=== PATIENT | male | born 1940 | race Caucasian/White ===

== ENCOUNTER 2022-12-18 02:58 | Emergency (ER) | payer MEDICARE, BC ==
[2022-12-18] MEDS ORDERED: Sodium Chloride 0.9% 10 ML Syringe FLUSH PRN (03:08)
[2022-12-18 03:30] LABS: ANION GAP 9.7 meq/L (7-15); CHLORIDE,CL 102 mmol/L (98-107); SODIUM,NA 139 mmol/L (136-145)
[2022-12-18 03:31] LABS: ESTIMATED GFR 76 mL/min (>=60)
== END 2022-12-18 04:03 ==
LOC: LL.ED 02:58
DX: R41.0 Disorientation, unspecified (principal); E78.00 Pure hypercholesterolemia, unspecified; I10 Essential (primary) hypertension; N40.0 Benign prostatic hyperplasia without lower urinary tract symptoms; Z87.891 Personal history of nicotine dependence
CPT/HCPCS: 36415; 70450; 71045; 80053; 82550; 83735; 83880; 84146; 84484; 85025; 85379; 85610; 93005; 93010; 99284; 99285

== ENCOUNTER 2023-03-04 09:23 | Emergency (ER) | payer MEDICARE, BC ==
[2023-03-04 09:46] LABS: BASOPHILS ABSOLUTE AUTO 0.02 K/uL (0.00-0.20); BASOPHILS PERCENT AUTO 0.3 % (0.0-2.0); EOSINOPHILS ABSOLUTE AUTO 0.24 K/uL (0.00-0.50); HEMATOCRIT 33.2 % (39.0-49.0); HEMOGLOBIN 10.5 g/dL (13.1-16.8); LYMPHOCYTES ABSOLUTE AUTO 1.49 K/uL (0.50-3.50); LYMPHOCYTES PERCENT AUTO 24.9 % (10.0-50.0); MEAN CORPUSCULAR HEMOGLOBIN 28.9 pg (28.2-33.3); MEAN CORPUSCULAR HGB CONC 31.6 g/dL (31.7-36.0); MEAN CORPUSCULAR VOLUME 91.5 fL (84.0-98.0); MONOCYTES ABSOLUTE AUTO 0.76 K/uL (0.00-1.00); MONOCYTES PERCENT AUTO 12.7 % (2.0-14.0); NEUTROPHILS ABSOLUTE AUTO 3.47 K/uL (1.40-7.00); NEUTROPHILS PERCENT AUTO 58.1 % (45.0-80.0); PLATELET COUNT,PLT 233 K/uL (150-350); RED BLOOD CELL COUNT 3.63 M/uL (4.33-5.41); RED CELL DISTRIBUTION WIDTH 14.7 % (11.2-14.1)
[2023-03-04 10:12] LABS: PROTHROMBIN TIME 20.3 SEC (9.6-11.3)
== END 2023-03-04 11:24 | disposition home or self-care (01) ==
LOC: LL.ED 09:23
DX: T83.038A Leakage of other urinary catheter, initial encounter (principal); I10 Essential (primary) hypertension; Z86.73 Personal history of transient ischemic attack (TIA), and cerebral infarction without residual deficits; Z91.048 Other nonmedicinal substance allergy status
CPT/HCPCS: 36415; 85025; 85610; 99283; 99284

== ENCOUNTER 2023-03-11 16:44 | Emergency (ER) | payer MEDICARE, BC ==
[2023-03-11 17:19] LABS: BASOPHILS ABSOLUTE AUTO 0.01 K/uL (0.00-0.20); BASOPHILS PERCENT AUTO 0.1 % (0.0-2.0); EOSINOPHILS ABSOLUTE AUTO 0.02 K/uL (0.00-0.50); EOSINOPHILS PERCENT AUTO 0.2 % (0.0-5.0); HEMATOCRIT 32.4 % (39.0-49.0); HEMOGLOBIN 10.5 g/dL (13.1-16.8); LYMPHOCYTES ABSOLUTE AUTO 1.37 K/uL (0.50-3.50); MEAN CORPUSCULAR HEMOGLOBIN 29.2 pg (28.2-33.3); MEAN CORPUSCULAR HGB CONC 32.4 g/dL (31.7-36.0); MONOCYTES ABSOLUTE AUTO 1.72 K/uL (0.00-1.00); MONOCYTES PERCENT AUTO 17.6 % (2.0-14.0); NEUTROPHILS ABSOLUTE AUTO 6.68 K/uL (1.40-7.00); NEUTROPHILS PERCENT AUTO 68.1 % (45.0-80.0); PLATELET COUNT,PLT 193 K/uL (150-350); RED CELL DISTRIBUTION WIDTH 14.8 % (11.2-14.1); WHITE BLOOD CELL COUNT,WBC 9.8 K/uL (4.0-10.2)
[2023-03-11 17:33] LABS: INR 2.8
[2023-03-11 17:37] LABS: ALANINE AMINOTRANSFERASE,ALT 30 U/L (12-78); ALBUMIN 3.5 g/dL (3.4-5.0); ALKALINE PHOSPHATASE 111 IU/L (46-116); ANION GAP 9.1 meq/L (7-15); ASPARTATE AMNIOTRANSFERASE,AST 26 U/L (15-37); BILIRUBIN TOTAL 0.9 mg/dL (0.2-1.0); BLOOD UREA NITROGEN,BUN 24 mg/dL (7-18); CALCIUM 8.9 mg/dL (8.5-10.1); CARBON DIOXIDE,CO2 25.9 mmol/L (21.0-32.0); CHLORIDE,CL 103 mmol/L (98-107); CREATININE 0.88 mg/dL (0.51-1.17); GLUCOSE RANDOM 127 mg/dL (70-99); POTASSIUM,K 3.7 mmol/L (3.5-5.1); PROTEIN TOTAL,TP 7.1 g/dL (6.4-8.2); SODIUM,NA 138 mmol/L (136-145)
[2023-03-11 17:39] LABS: ESTIMATED GFR 86 mL/min (>=60)
[2023-03-11 17:55] LABS: CORONAVIRUS COVID-19 NAA NEGATIVE (NEGATIVE); INFLUENZA A NAA NEGATIVE (NEGATIVE); INFLUENZA B NAA NEGATIVE (NEGATIVE); RESPIRATORY SYNCYTIAL VIR NAA NEGATIVE (NEGATIVE)
[2023-03-11] MEDS ORDERED: Sodium Chloride 0.9% 500 ML IV STA (18:03)
[2023-03-11 18:37] LABS: APPEARANCE,URINE SLIGHTLY CLOUDY; BILIRUBIN,URINE LARGE (NEGATIVE); COLOR,URINE RED; GLUCOSE,URINE 100 mg/dL (NEGATIVE); KETONES,URINE 40 mg/dL (NEGATIVE); LEUKOCYTE ESTERASE,URINE LARGE (NEGATIVE); NITRITE,URINE NEGATIVE (NEGATIVE); OCCULT BLOOD,URINE LARGE (NEGATIVE); PH,URINE 5.5 (5.0-9.0); PROTEIN,URINE >=300 mg/dL (NEGATIVE)
[2023-03-11 18:42] LABS: BACTERIA,URINE MODERATE /HPF (NONE TO FEW); EPITHELIAL CELLS,URINE RARE /LPF; RBC,URINE PACKED /HPF
[2023-03-11] MEDS ORDERED: Take Home: Sulfamethoxazole/Trimethoprim 800-160 MG Tab, 6 Tab Pack PO ONE (18:58)
== END 2023-03-11 19:50 | disposition home or self-care (01) ==
LOC: LL.ED 16:44
DX: N39.0 Urinary tract infection, site not specified (principal); R31.0 Gross hematuria; E78.00 Pure hypercholesterolemia, unspecified; I10 Essential (primary) hypertension; Z91.048 Other nonmedicinal substance allergy status; Z79.899 Other long term (current) drug therapy; Z20.822 Contact with and (suspected) exposure to COVID-19
CPT/HCPCS: 0241U; 36415; 80053; 81001; 84484; 85025; 85610; 87081; 87086; 87430; 99283; 99284; A9270-GY

== ENCOUNTER 2023-11-21 11:35 | Emergency (ER) | payer MEDICARE, BC ==
[2023-11-21] MEDS ORDERED: Sodium Chloride 0.9% 10 ML Syringe FLUSH PRN (11:56)
[2023-11-21 12:11] LABS: BASOPHILS ABSOLUTE AUTO 0.01 K/uL (0.00-0.20); BASOPHILS PERCENT AUTO 0.1 % (0.0-2.0); EOSINOPHILS ABSOLUTE AUTO 0.01 K/uL (0.00-0.50); EOSINOPHILS PERCENT AUTO 0.1 % (0.0-5.0); HEMATOCRIT 36.9 % (39.0-49.0); HEMOGLOBIN 11.8 g/dL (13.1-16.8); LYMPHOCYTES ABSOLUTE AUTO 0.37 K/uL (0.50-3.50); LYMPHOCYTES PERCENT AUTO 2.2 % (10.0-50.0); MEAN CORPUSCULAR HEMOGLOBIN 29.4 pg (28.2-33.3); MEAN CORPUSCULAR VOLUME 91.8 fL (84.0-98.0); MONOCYTES ABSOLUTE AUTO 0.15 K/uL (0.00-1.00); MONOCYTES PERCENT AUTO 0.9 % (2.0-14.0); NEUTROPHILS ABSOLUTE AUTO 15.97 K/uL (1.40-7.00); NEUTROPHILS PERCENT AUTO 96.7 % (45.0-80.0); PLATELET COUNT,PLT 230 K/uL (150-350); RED BLOOD CELL COUNT 4.02 M/uL (4.33-5.41); RED CELL DISTRIBUTION WIDTH 14.5 % (11.2-14.1); WHITE BLOOD CELL COUNT,WBC 16.5 K/uL (4.0-10.2)
[2023-11-21 12:35] LABS: ALBUMIN 3.8 g/dL (3.4-5.0); ANION GAP 10.8 meq/L (7-15); BILIRUBIN TOTAL 0.7 mg/dL (0.2-1.0); CALCIUM 9.5 mg/dL (8.5-10.1); CARBON DIOXIDE,CO2 26.2 mmol/L (21.0-32.0); CREATININE 0.92 mg/dL (0.51-1.17); EST CRCL DRUG DOSING (CG) 62.82 mL/min; POTASSIUM,K 4.3 mmol/L (3.5-5.1); PROTEIN TOTAL,TP 8.1 g/dL (6.4-8.2)
[2023-11-21 13:48] LABS: INR 1.9
== END 2023-11-21 14:30 | disposition home or self-care (01) ==
LOC: LL.ED 11:35
DX: S37.39XA Other injury of urethra, initial encounter (principal); R33.9 Retention of urine, unspecified; I10 Essential (primary) hypertension; E78.00 Pure hypercholesterolemia, unspecified; Z86.73 Personal history of transient ischemic attack (TIA), and cerebral infarction without residual deficits; Z79.01 Long term (current) use of anticoagulants; Z79.899 Other long term (current) drug therapy; Z91.048 Other nonmedicinal substance allergy status; Z88.8 Allergy status to other drugs, medicaments and biological substances; X58.XXXA Exposure to other specified factors, initial encounter
CPT/HCPCS: 36415; 74176; 80053; 83690; 85025; 85610; 99284

== ENCOUNTER 2025-04-23 15:29 | Inpatient (IN) | payer MEDICARE, BC ==
[2025-04-23 15:53] LABS: BASOPHILS ABSOLUTE AUTO 0.01 K/uL (0.00-0.20); BASOPHILS PERCENT AUTO 0.1 % (0.0-2.0); HEMATOCRIT 26.4 % (39.0-49.0); HEMOGLOBIN 8.4 g/dL (13.1-16.8); IMMATURE GRAN ABSOLUTE AUTO 0.04 10^3/uL (0.00-0.04); IMMATURE GRAN PERCENT AUTO 0.2 % (0.0-0.4); LYMPHOCYTES ABSOLUTE AUTO 0.23 K/uL (0.50-3.50); LYMPHOCYTES PERCENT AUTO 1.3 % (10.0-50.0); MEAN CORPUSCULAR HEMOGLOBIN 27.4 pg (28.2-33.3); MEAN CORPUSCULAR HGB CONC 31.8 g/dL (31.7-36.0); MONOCYTES ABSOLUTE AUTO 1.19 K/uL (0.00-1.00); MONOCYTES PERCENT AUTO 6.7 % (2.0-14.0); NEUTROPHILS ABSOLUTE AUTO 16.29 K/uL (1.40-7.00); NEUTROPHILS PERCENT AUTO 91.7 % (45.0-80.0); PLATELET COUNT,PLT 222 K/uL (150-350); RED BLOOD CELL COUNT 3.07 M/uL (4.33-5.41); RED CELL DISTRIBUTION WIDTH 15.1 % (11.2-14.1); WHITE BLOOD CELL COUNT,WBC 17.8 K/uL (4.0-10.2)
[2025-04-23] MEDS ORDERED: Diltiazem 25 MG/5 ML SDV IVPUSH ONE (15:53)
[2025-04-23 16:13] LABS: INR 3.5 (0.9-1.1); PROTHROMBIN TIME 31.8 SEC (9.0-11.1)
[2025-04-23 16:18] LABS: ALANINE AMINOTRANSFERASE,ALT 20 U/L (12-78); ALBUMIN 2.6 g/dL (3.4-5.0); ALKALINE PHOSPHATASE 91 IU/L (46-116); ANION GAP 10.6 meq/L (7-15); ASPARTATE AMNIOTRANSFERASE,AST 18 U/L (15-37); BILIRUBIN TOTAL 0.7 mg/dL (0.2-1.0); BLOOD UREA NITROGEN,BUN 23 mg/dL (7-18); CALCIUM 8.9 mg/dL (8.5-10.1); CARBON DIOXIDE,CO2 25.4 mmol/L (21.0-32.0); CHLORIDE,CL 102 mmol/L (98-107); CREATININE 0.94 mg/dL (0.51-1.17); GLUCOSE RANDOM 102 mg/dL (70-99); MAGNESIUM 2.1 mg/dL (1.8-2.4); POTASSIUM,K 4.2 mmol/L (3.5-5.1); PROTEIN TOTAL,TP 7.6 g/dL (6.4-8.2); SODIUM,NA 138 mmol/L (136-145)
[2025-04-23 16:27] LABS: PRO B-TYPE NATRIUR PEPT,BNPPRO 2919 pg/mL (0-125)
[2025-04-23 16:27] LABS: ESTIMATED GFR 80 mL/min (>=60)
[2025-04-23 17:44] LABS: APPEARANCE,URINE SLIGHTLY CLOUDY; BILIRUBIN,URINE NEGATIVE (NEGATIVE); COLOR,URINE YELLOW; GLUCOSE,URINE NEGATIVE (NEGATIVE); KETONES,URINE 40 mg/dL (NEGATIVE); LEUKOCYTE ESTERASE,URINE SMALL (NEGATIVE); NITRITE,URINE NEGATIVE (NEGATIVE); OCCULT BLOOD,URINE LARGE (NEGATIVE); PROTEIN,URINE 100 mg/dL (NEGATIVE); UROBILINOGEN,URINE 0.2 E.U./dL (0.2-1.0)
[2025-04-23] MEDS: Diltiazem 25 MG/5 ML SDV ONE (17:48)
[2025-04-23] MEDS: Sodium Chloride 0.9% 1,000 ML IV ONE (17:49)
[2025-04-23 17:54] LABS: BACTERIA,URINE FEW /HPF (NONE TO FEW); EPITHELIAL CELLS,URINE NOT SEEN /LPF; RBC,URINE >100 /HPF; WBC,URINE 75-100 /HPF
[2025-04-23] MEDS: cefTRIAXone 1 GM Vial IVPUSH SCH (17:58)
[2025-04-23] MEDS: Sodium Chloride 0.9% 10 ML Syringe FLUSH PRN (18:02)
[2025-04-23] MEDS ORDERED: Temazepam 15 MG Cap PO PRN (18:20)
[2025-04-23] MEDS ORDERED: Ondansetron 4 MG/2 ML SDV IVPUSH PRN (18:20)
[2025-04-23] MEDS: Sodium Chloride 0.9% 1,000 ML IV SCH (19:05)
[2025-04-23] MEDS: Sertraline 50 MG Tab PO SCH (20:29)
[2025-04-23] MEDS: atorvaSTATin 40 MG Tab PO SCH (20:29)
[2025-04-24 07:31] LABS: BASOPHILS ABSOLUTE AUTO 0.02 K/uL (0.00-0.20); BASOPHILS PERCENT AUTO 0.1 % (0.0-2.0); EOSINOPHILS ABSOLUTE AUTO 0.01 K/uL (0.00-0.50); EOSINOPHILS PERCENT AUTO 0.1 % (0.0-5.0); IMMATURE GRAN ABSOLUTE AUTO 0.08 10^3/uL (0.00-0.04); IMMATURE GRAN PERCENT AUTO 0.5 % (0.0-0.4); LYMPHOCYTES ABSOLUTE AUTO 0.65 K/uL (0.50-3.50); LYMPHOCYTES PERCENT AUTO 3.8 % (10.0-50.0); MEAN CORPUSCULAR HEMOGLOBIN 27.2 pg (28.2-33.3); MEAN CORPUSCULAR HGB CONC 31.1 g/dL (31.7-36.0); MEAN CORPUSCULAR VOLUME 87.4 fL (84.0-98.0); MONOCYTES ABSOLUTE AUTO 1.43 K/uL (0.00-1.00); MONOCYTES PERCENT AUTO 8.3 % (2.0-14.0); NEUTROPHILS ABSOLUTE AUTO 15.13 K/uL (1.40-7.00); NEUTROPHILS PERCENT AUTO 87.2 % (45.0-80.0); PLATELET COUNT,PLT 274 K/uL (150-350); RED BLOOD CELL COUNT 2.61 M/uL (4.33-5.41); RED CELL DISTRIBUTION WIDTH 15.3 % (11.2-14.1); WHITE BLOOD CELL COUNT,WBC 17.3 K/uL (4.0-10.2)
[2025-04-24 07:47] LABS: HEMATOCRIT 22.8 % (39.0-49.0); HEMOGLOBIN 7.1 g/dL (13.1-16.8)
[2025-04-24 07:57] LABS: ANION GAP 6.8 meq/L (7-15); CALCIUM 8.3 mg/dL (8.5-10.1); CARBON DIOXIDE,CO2 28.2 mmol/L (21.0-32.0); CREATININE 0.86 mg/dL (0.51-1.17); EST CRCL DRUG DOSING (CG) 68.1 mL/min; POTASSIUM,K 4.1 mmol/L (3.5-5.1)
[2025-04-24] MEDS ORDERED: cefTRIAXone 1 GM Vial IVPUSH SCH (08:00)
[2025-04-24] MEDS: Tamsulosin 0.4 MG Cap.ER PO SCH (08:02)
[2025-04-24] MEDS: Cholecalciferol (Vitamin D3) 5,000 UNIT Tab PO SCH (08:02)
[2025-04-24] MEDS: Montelukast 10 MG Tab PO SCH (08:02)
[2025-04-24] MEDS: Acetaminophen 325 MG Tab PO PRN (08:04)
[2025-04-24] MEDS ORDERED: Sodium Chloride 0.9% 1,000 ML IV SCH (10:00)
[2025-04-24] MEDS: cefTRIAXone 2 GM in Sodium Chloride 0.9% 100 ML IV SCH (11:40)
[2025-04-24] MEDS: Sodium Chloride 0.9% 250 ML IV SCH (12:50)
[2025-04-24] MEDS: cefTRIAXone 2 GM Vial IVPUSH SCH (13:06)
[2025-04-25 07:37] LABS: BASOPHILS ABSOLUTE AUTO 0.02 K/uL (0.00-0.20); BASOPHILS PERCENT AUTO 0.2 % (0.0-2.0); EOSINOPHILS ABSOLUTE AUTO 0.02 K/uL (0.00-0.50); EOSINOPHILS PERCENT AUTO 0.2 % (0.0-5.0); HEMATOCRIT 30.4 % (39.0-49.0); HEMOGLOBIN 9.6 g/dL (13.1-16.8); IMMATURE GRAN ABSOLUTE AUTO 0.05 10^3/uL (0.00-0.04); IMMATURE GRAN PERCENT AUTO 0.4 % (0.0-0.4); LYMPHOCYTES ABSOLUTE AUTO 0.46 K/uL (0.50-3.50); LYMPHOCYTES PERCENT AUTO 3.9 % (10.0-50.0); MEAN CORPUSCULAR HEMOGLOBIN 27.5 pg (28.2-33.3); MEAN CORPUSCULAR HGB CONC 31.6 g/dL (31.7-36.0); MEAN CORPUSCULAR VOLUME 87.1 fL (84.0-98.0); MONOCYTES ABSOLUTE AUTO 1.15 K/uL (0.00-1.00); MONOCYTES PERCENT AUTO 9.7 % (2.0-14.0); NEUTROPHILS ABSOLUTE AUTO 10.19 K/uL (1.40-7.00); NEUTROPHILS PERCENT AUTO 85.6 % (45.0-80.0); PLATELET COUNT,PLT 272 K/uL (150-350); RED BLOOD CELL COUNT 3.49 M/uL (4.33-5.41); RED CELL DISTRIBUTION WIDTH 14.9 % (11.2-14.1); WHITE BLOOD CELL COUNT,WBC 11.9 K/uL (4.0-10.2)
[2025-04-25 07:44] LABS: INR 2.4
[2025-04-25 08:08] LABS: ANION GAP 8.5 meq/L (7-15); CALCIUM 8.6 mg/dL (8.5-10.1); CARBON DIOXIDE,CO2 26.5 mmol/L (21.0-32.0); CREATININE 0.81 mg/dL (0.51-1.17); EST CRCL DRUG DOSING (CG) 72.3 mL/min; POTASSIUM,K 4.6 mmol/L (3.5-5.1)
[2025-04-25] MEDS: Phytonadione 100 MCG Tab PO SCH (10:21)
[2025-04-25 15:47] LABS: % TRANSFERRIN SAT 6.5 % (20.0-50.0)
[2025-04-25] MEDS: Warfarin 2.5 MG Tab PO SCH (17:20)
[2025-04-26 07:19] LABS: BASOPHILS ABSOLUTE AUTO 0.01 K/uL (0.00-0.20); BASOPHILS PERCENT AUTO 0.1 % (0.0-2.0); EOSINOPHILS ABSOLUTE AUTO 0.07 K/uL (0.00-0.50); EOSINOPHILS PERCENT AUTO 0.7 % (0.0-5.0); HEMATOCRIT 30.8 % (39.0-49.0); HEMOGLOBIN 9.6 g/dL (13.1-16.8); IMMATURE GRAN ABSOLUTE AUTO 0.06 10^3/uL (0.00-0.04); IMMATURE GRAN PERCENT AUTO 0.6 % (0.0-0.4); LYMPHOCYTES ABSOLUTE AUTO 0.53 K/uL (0.50-3.50); LYMPHOCYTES PERCENT AUTO 5.6 % (10.0-50.0); MEAN CORPUSCULAR HEMOGLOBIN 27.2 pg (28.2-33.3); MEAN CORPUSCULAR HGB CONC 31.2 g/dL (31.7-36.0); MEAN CORPUSCULAR VOLUME 87.3 fL (84.0-98.0); MONOCYTES ABSOLUTE AUTO 1.02 K/uL (0.00-1.00); MONOCYTES PERCENT AUTO 10.7 % (2.0-14.0); NEUTROPHILS ABSOLUTE AUTO 7.85 K/uL (1.40-7.00); NEUTROPHILS PERCENT AUTO 82.3 % (45.0-80.0); PLATELET COUNT,PLT 296 K/uL (150-350); RED BLOOD CELL COUNT 3.53 M/uL (4.33-5.41); RED CELL DISTRIBUTION WIDTH 15.1 % (11.2-14.1); WHITE BLOOD CELL COUNT,WBC 9.5 K/uL (4.0-10.2)
[2025-04-26 07:52] LABS: ANION GAP 9.4 meq/L (7-15); CALCIUM 8.8 mg/dL (8.5-10.1); CARBON DIOXIDE,CO2 25.6 mmol/L (21.0-32.0); CREATININE 0.74 mg/dL (0.51-1.17); EST CRCL DRUG DOSING (CG) 79.14 mL/min
[2025-04-26] MEDS ORDERED: Warfarin 2.5 MG Tab PO SCH (18:00)
== END 2025-04-26 08:45 | disposition swing bed (61) | DRG 699 ==
LOC: LL.ED 15:29 → LL.MS 18:18
PROVIDERS: ADMIT Emergency Medicine; ATTEND Emergency Medicine
PROC: 0T2BX0Z Change Drainage Device in Bladder, External Approach (ICD-10-PCS; principal; 2025-04-23)
PROC: 30233N1 Transfusion of Nonautologous Red Blood Cells into Peripheral Vein, Percutaneous Approach (ICD-10-PCS; 2025-04-24)
DX: T83.511A Infection and inflammatory reaction due to indwelling urethral catheter, initial encounter (principal); I69.354 Hemiplegia and hemiparesis following cerebral infarction affecting left non-dominant side; N39.0 Urinary tract infection, site not specified; Z66 Do not resuscitate; Z86.73 Personal history of transient ischemic attack (TIA), and cerebral infarction without residual deficits; Z91.048 Other nonmedicinal substance allergy status; H54.7 Unspecified visual loss; E78.00 Pure hypercholesterolemia, unspecified; I10 Essential (primary) hypertension; N40.0 Benign prostatic hyperplasia without lower urinary tract symptoms; M19.90 Unspecified osteoarthritis, unspecified site; F32.A Depression, unspecified; I48.91 Unspecified atrial fibrillation; R29.6 Repeated falls; E86.0 Dehydration; R33.9 Retention of urine, unspecified; D64.9 Anemia, unspecified; R31.9 Hematuria, unspecified; Z79.899 Other long term (current) drug therapy; Z79.52 Long term (current) use of systemic steroids; Z79.01 Long term (current) use of anticoagulants; Z87.81 Personal history of (healed) traumatic fracture; Z85.46 Personal history of malignant neoplasm of prostate; Y84.6 Urinary catheterization as the cause of abnormal reaction of the patient, or of later complication, without mention of misadventure at the time of the procedure
CPT/HCPCS: 36415; 36430; 51702; 70450; 72125; 72170; 74177; 80048; 80053; 81001; 82272; 82565; 82607; 82728; 82746; 83540; 83550; 83605; 83735; 83880; 84484; 85025; 85610; 86850; 86900; 86901; 86920; 86922; 87040; 87086; 87088; 87186; 93005; 93010; 96374; 97161-GP; 97165-GO; 97535-GO; 99223; 99232; 99233; 99239; 99285-25; A9270-GY; J0696; J3490; J7030; J7050; P9016; Q9967

== ENCOUNTER 2025-04-26 08:28 | Inpatient (IN) | payer MEDICARE, BC ==
[2025-04-26] MEDS ORDERED: Sodium Chloride 0.9% 10 ML Syringe FLUSH PRN (08:35)
[2025-04-26] MEDS ORDERED: Ondansetron 4 MG/2 ML SDV IVPUSH PRN (08:35)
[2025-04-26] MEDS: Diltiazem 25 MG/5 ML SDV IVPUSH ONE (10:44)
[2025-04-26] MEDS: Sodium Chloride 0.9% 10 ML Syringe FLUSH PRN (20:44)
[2025-04-27] MEDS: guaiFENesin 100 MG/5 ML Soln 10 ML UD Cup PO PRN (00:02)
[2025-04-27] MEDS: Cholecalciferol (Vitamin D3) 5,000 UNIT Tab PO SCH (08:06)
[2025-04-29] MEDS ORDERED: Loperamide 2 MG Tab PO PRN (19:16)
[2025-04-29] MEDS: Simethicone 125 MG Tab.Chew PO PRN (21:10)
[2025-04-30 07:35] LABS: INR 3.4
[2025-05-01 07:32] LABS: BASOPHILS ABSOLUTE AUTO 0.03 K/uL (0.00-0.20); BASOPHILS PERCENT AUTO 0.3 % (0.0-2.0); EOSINOPHILS ABSOLUTE AUTO 0.18 K/uL (0.00-0.50); EOSINOPHILS PERCENT AUTO 2.1 % (0.0-5.0); IMMATURE GRAN ABSOLUTE AUTO 0.42 10^3/uL (0.00-0.04); IMMATURE GRAN PERCENT AUTO 4.8 % (0.0-0.4); LYMPHOCYTES ABSOLUTE AUTO 0.59 K/uL (0.50-3.50); LYMPHOCYTES PERCENT AUTO 6.8 % (10.0-50.0); MONOCYTES ABSOLUTE AUTO 0.91 K/uL (0.00-1.00); MONOCYTES PERCENT AUTO 10.5 % (2.0-14.0); NEUTROPHILS ABSOLUTE AUTO 6.53 K/uL (1.40-7.00); NEUTROPHILS PERCENT AUTO 75.5 % (45.0-80.0); PLATELET COUNT,PLT 325 K/uL (150-350); RED BLOOD CELL COUNT 3.15 M/uL (4.33-5.41); RED CELL DISTRIBUTION WIDTH 15.5 % (11.2-14.1); WHITE BLOOD CELL COUNT,WBC 8.7 K/uL (4.0-10.2)
[2025-05-01 07:45] LABS: BLOOD UREA NITROGEN,BUN 29.0 mg/dL (7-18); CARBON DIOXIDE,CO2 27.0 mmol/L (21.0-32.0); CHLORIDE,CL 104.0 mmol/L (98-107); CREATININE 0.62 mg/dL (0.51-1.17); EST CRCL DRUG DOSING (CG) 94.46 mL/min; GLUCOSE RANDOM 88.0 mg/dL (70-99); INR 3.2 (0.9-1.1); POTASSIUM,K 4.0 mmol/L (3.5-5.1); SODIUM,NA 140.0 mmol/L (136-145)
[2025-05-01 07:57] LABS: ESTIMATED GFR 94.0 mL/min (>=60)
[2025-05-02 08:02] LABS: INR 2.5
== END 2025-05-02 11:25 | disposition home or self-care (01) | DRG 948 ==
LOC: LL.MS 08:57
PROVIDERS: ADMIT Physician Assistant Medical; ATTEND Physician Assistant Medical
DX: R53.1 Weakness (principal); N39.0 Urinary tract infection, site not specified; R53.81 Other malaise; Z66 Do not resuscitate; R29.6 Repeated falls; D64.9 Anemia, unspecified; Z79.899 Other long term (current) drug therapy; Z79.01 Long term (current) use of anticoagulants
CPT/HCPCS: 36415; 36416; 80048; 85025; 85610; 97110-GO; 97110-GP; 97129-GO; 97164-GP; 97165-GO; 97530-GP; 97535-GO; 99307; 99316; A9270-GY; J0696

== ENCOUNTER 2025-05-29 12:35 | Emergency (ER) | payer MEDICARE, BC ==
[2025-05-29 12:58] LABS: BASOPHILS ABSOLUTE AUTO 0.01 K/uL (0.00-0.20); BASOPHILS PERCENT AUTO 0.0 % (0.0-2.0); EOSINOPHILS ABSOLUTE AUTO 0.00 K/uL (0.00-0.50); EOSINOPHILS PERCENT AUTO 0.0 % (0.0-5.0); IMMATURE GRAN ABSOLUTE AUTO 0.09 10^3/uL (0.00-0.04); IMMATURE GRAN PERCENT AUTO 0.4 % (0.0-0.4); LYMPHOCYTES ABSOLUTE AUTO 0.43 K/uL (0.50-3.50); LYMPHOCYTES PERCENT AUTO 2.0 % (10.0-50.0); MONOCYTES ABSOLUTE AUTO 1.46 K/uL (0.00-1.00); MONOCYTES PERCENT AUTO 6.9 % (2.0-14.0); NEUTROPHILS ABSOLUTE AUTO 19.21 K/uL (1.40-7.00); NEUTROPHILS PERCENT AUTO 90.7 % (45.0-80.0); PLATELET COUNT,PLT 271 K/uL (150-350); RED BLOOD CELL COUNT 3.48 M/uL (4.33-5.41); RED CELL DISTRIBUTION WIDTH 16.1 % (11.2-14.1); WHITE BLOOD CELL COUNT,WBC 21.2 K/uL (4.0-10.2)
[2025-05-29 13:18] LABS: ASPARTATE AMNIOTRANSFERASE,AST 20 U/L (15-37); BILIRUBIN TOTAL 0.5 mg/dL (0.2-1.0); BLOOD UREA NITROGEN,BUN 28 mg/dL (7-18); CARBON DIOXIDE,CO2 25.8 mmol/L (21.0-32.0); CHLORIDE,CL 101 mmol/L (98-107); CREATININE 0.94 mg/dL (0.51-1.17); ESTIMATED GFR 80 mL/min (>=60); GLUCOSE RANDOM 115 mg/dL (70-99); POTASSIUM,K 4.2 mmol/L (3.5-5.1); PROTEIN TOTAL,TP 7.8 g/dL (6.4-8.2); SODIUM,NA 135 mmol/L (136-145)
[2025-05-29 13:38] LABS: ALANINE AMINOTRANSFERASE,ALT 22 U/L (12-78)
[2025-05-29 13:49] LABS: INR 2.5 (0.9-1.1)
[2025-05-29] MEDS ORDERED: Iopamidol 612 MG/ML 100 ML Bottle IVPUSH ONE (14:03)
[2025-05-29 14:29] LABS: APPEARANCE,URINE TURBID; GLUCOSE,URINE NEGATIVE (NEGATIVE); OCCULT BLOOD,URINE LARGE (NEGATIVE)
[2025-05-29] MEDS: Sodium Chloride 0.9% 10 ML Syringe FLUSH PRN (14:41)
[2025-05-29 18:20] VITALS: BP 98/73; PULSE 116
== END 2025-05-29 18:41 ==
LOC: LL.ED 12:35
DX: I48.91 Unspecified atrial fibrillation (principal); N39.0 Urinary tract infection, site not specified; J18.9 Pneumonia, unspecified organism; E78.00 Pure hypercholesterolemia, unspecified; I10 Essential (primary) hypertension; Z91.048 Other nonmedicinal substance allergy status; Z91.040 Latex allergy status; Z79.899 Other long term (current) drug therapy; Z79.01 Long term (current) use of anticoagulants; Z86.73 Personal history of transient ischemic attack (TIA), and cerebral infarction without residual deficits
CPT/HCPCS: 36415; 51702; 71045; 71260; 80053; 81001; 83605; 83735; 85025; 85610; 87040; 87086; 93005; 96361; 96365; 96375; 99285-25; J0696; J3373; J7030; J7050; Q9967

== ENCOUNTER 2025-08-13 16:25 | Inpatient (IN) | payer MEDICARE, BC ==
[2025-08-13 17:05] LABS: BASOPHILS ABSOLUTE AUTO 0.01 K/uL (0.00-0.20); BASOPHILS PERCENT AUTO 0.2 % (0.0-2.0); EOSINOPHILS ABSOLUTE AUTO 0.04 K/uL (0.00-0.50); EOSINOPHILS PERCENT AUTO 0.6 % (0.0-5.0); IMMATURE GRAN ABSOLUTE AUTO 0.01 10^3/uL (0.00-0.04); IMMATURE GRAN PERCENT AUTO 0.2 % (0.0-0.4); LYMPHOCYTES ABSOLUTE AUTO 0.24 K/uL (0.50-3.50); LYMPHOCYTES PERCENT AUTO 3.9 % (10.0-50.0); MONOCYTES ABSOLUTE AUTO 0.18 K/uL (0.00-1.00); MONOCYTES PERCENT AUTO 2.9 % (2.0-14.0); NEUTROPHILS ABSOLUTE AUTO 5.73 K/uL (1.40-7.00); NEUTROPHILS PERCENT AUTO 92.2 % (45.0-80.0); PLATELET COUNT,PLT 187 K/uL (150-350); RED BLOOD CELL COUNT 3.43 M/uL (4.33-5.41); RED CELL DISTRIBUTION WIDTH 18.2 % (11.2-14.1); WHITE BLOOD CELL COUNT,WBC 6.2 K/uL (4.0-10.2)
[2025-08-13 17:17] LABS: APPEARANCE,URINE CLOUDY; GLUCOSE,URINE NEGATIVE (NEGATIVE); OCCULT BLOOD,URINE LARGE (NEGATIVE)
[2025-08-13 17:33] LABS: ALANINE AMINOTRANSFERASE,ALT 33 U/L (12-78); ASPARTATE AMNIOTRANSFERASE,AST 24 U/L (15-37); BILIRUBIN TOTAL 0.3 mg/dL (0.2-1.0); BLOOD UREA NITROGEN,BUN 41 mg/dL (7-18); CARBON DIOXIDE,CO2 26.1 mmol/L (21.0-32.0); CHLORIDE,CL 108 mmol/L (98-107); CREATININE 0.91 mg/dL (0.51-1.17); GLUCOSE RANDOM 119 mg/dL (70-99); POTASSIUM,K 4.2 mmol/L (3.5-5.1); PROTEIN TOTAL,TP 7.7 g/dL (6.4-8.2); SODIUM,NA 142 mmol/L (136-145); TSH ULTRASENSITIVE 4.399 mIU/mL (0.358-3.740)
[2025-08-13 17:36] LABS: LACTIC ACID 1.1 mmol/L (0.4-2.0)
[2025-08-13 17:38] LABS: ESTIMATED GFR 83 mL/min (>=60); INR 1.4 (0.9-1.1); PTT,PARTIAL THROMBOPLSTIN TIME 27.5 SEC (23.8-34.4)
[2025-08-13 17:40] LABS: SQUAMOUS EPITHELIAL CELLS,UR RARE /HPF (NOT SEEN)
[2025-08-13 17:55] LABS: CORONAVIRUS COVID-19 NAA NEGATIVE (NEGATIVE); INFLUENZA A NAA NEGATIVE (NEGATIVE); INFLUENZA B NAA NEGATIVE (NEGATIVE); RESPIRATORY SYNCYTIAL VIR NAA NEGATIVE (NEGATIVE)
[2025-08-13] MEDS: Sennosides/Docusate Sodium 50-8.6 MG Tab PO SCH (19:39)
[2025-08-14] MEDS: Cholecalciferol (Vitamin D3) 25 MCG Tab PO SCH (07:48)
[2025-08-14 07:57] LABS: BASOPHILS ABSOLUTE AUTO 0.01 K/uL (0.00-0.20); BASOPHILS PERCENT AUTO 0.1 % (0.0-2.0); EOSINOPHILS ABSOLUTE AUTO 0.00 K/uL (0.00-0.50); EOSINOPHILS PERCENT AUTO 0.0 % (0.0-5.0); IMMATURE GRAN ABSOLUTE AUTO 0.04 10^3/uL (0.00-0.04); IMMATURE GRAN PERCENT AUTO 0.3 % (0.0-0.4); LYMPHOCYTES ABSOLUTE AUTO 0.65 K/uL (0.50-3.50); LYMPHOCYTES PERCENT AUTO 4.7 % (10.0-50.0); MONOCYTES ABSOLUTE AUTO 1.07 K/uL (0.00-1.00); MONOCYTES PERCENT AUTO 7.7 % (2.0-14.0); NEUTROPHILS ABSOLUTE AUTO 12.17 K/uL (1.40-7.00); NEUTROPHILS PERCENT AUTO 87.2 % (45.0-80.0); PLATELET COUNT,PLT 226 K/uL (150-350); RED BLOOD CELL COUNT 3.25 M/uL (4.33-5.41); RED CELL DISTRIBUTION WIDTH 18.4 % (11.2-14.1); WHITE BLOOD CELL COUNT,WBC 13.9 K/uL (4.0-10.2)
[2025-08-14] MEDS ORDERED: Non-Formulary Medication 1 Each (Iron,Carbonyl/Ascorbic Acid [Vitron-C Tablet] 1 EACH Tabl PO SCH (08:00)
[2025-08-14 08:35] LABS: INR 1.5 (0.9-1.1)
[2025-08-14 08:47] LABS: ALANINE AMINOTRANSFERASE,ALT 33.0 U/L (12-78); ASPARTATE AMNIOTRANSFERASE,AST 16.0 U/L (15-37); BILIRUBIN TOTAL 0.4 mg/dL (0.2-1.0); BLOOD UREA NITROGEN,BUN 43.0 mg/dL (7-18); CARBON DIOXIDE,CO2 25.7 mmol/L (21.0-32.0); CHLORIDE,CL 106.0 mmol/L (98-107); CREATININE 1.11 mg/dL (0.51-1.17); EST CRCL DRUG DOSING (CG) 51.82 mL/min; GLUCOSE RANDOM 124.0 mg/dL (70-99); POTASSIUM,K 3.8 mmol/L (3.5-5.1); PROTEIN TOTAL,TP 7.8 g/dL (6.4-8.2); SODIUM,NA 141.0 mmol/L (136-145)
[2025-08-14 09:00] LABS: ESTIMATED GFR 65.0 mL/min (>=60)
[2025-08-15] MEDS ORDERED: Lutein/Minerals/Vitamin C/Vitamin E Acetate Cap PO SCH (09:00)
== END 2025-08-14 12:23 | disposition home or self-care (01) | DRG 698 ==
LOC: LL.ED 16:25 → LL.MS 18:41
PROVIDERS: ADMIT Physician Assistant; ATTEND Physician Assistant
DX: T83.511A Infection and inflammatory reaction due to indwelling urethral catheter, initial encounter (principal); J18.9 Pneumonia, unspecified organism; N39.0 Urinary tract infection, site not specified; Z66 Do not resuscitate; E78.5 Hyperlipidemia, unspecified; Z88.8 Allergy status to other drugs, medicaments and biological substances; I10 Essential (primary) hypertension; I48.0 Paroxysmal atrial fibrillation; F32.A Depression, unspecified; H54.7 Unspecified visual loss; E78.00 Pure hypercholesterolemia, unspecified; N40.0 Benign prostatic hyperplasia without lower urinary tract symptoms; M19.90 Unspecified osteoarthritis, unspecified site; Z86.73 Personal history of transient ischemic attack (TIA), and cerebral infarction without residual deficits; Z98.890 Other specified postprocedural states; Z91.040 Latex allergy status; Z88.9 Allergy status to unspecified drugs, medicaments and biological substances; Z91.048 Other nonmedicinal substance allergy status; Z87.81 Personal history of (healed) traumatic fracture; Z85.46 Personal history of malignant neoplasm of prostate; Z79.01 Long term (current) use of anticoagulants; Z79.899 Other long term (current) drug therapy; Y73.2 Prosthetic and other implants, materials and accessory gastroenterology and urology devices associated with adverse incidents; Y84.6 Urinary catheterization as the cause of abnormal reaction of the patient, or of later complication, without mention of misadventure at the time of the procedure
CPT/HCPCS: 36415; 51702; 71045; 80053; 81001; 83605; 83735; 84443; 85025; 85610; 85730; 86140; 87040; 87086; 87088; 87186; 87637; 99285; A9270-GY; J0696